=== PATIENT | male | born 1980 ===

== ENCOUNTER 2017-03-05 20:01 | Emergency (ER) | payer OTHER ==
[2017-03-05 20:25] VITALS: RESP 18; O2SAT 98
[2017-03-05] MEDS ORDERED: Naproxen 550 mg Tab PO STA (21:18)
[2017-03-05] MEDS ORDERED: Oxycodone/Acetaminophen 5/325 mg Tab PO STA (21:18)
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
[2017-03-05] MEDS ORDERED: Oxycodone/Acetaminophen 5/325 mg Tab ONE (21:23)
[2017-03-05] MEDS ORDERED: Naproxen 550 mg Tab PO ONE (21:23)
[2017-03-05 21:33] VITALS: BP 134/90; PULSE 106; TEMP 97.9
== END 2017-03-05 21:32 | disposition home or self-care (01) ==
LOC: C.ER 20:01
DX: S93.401D Sprain of unspecified ligament of right ankle, subsequent encounter (principal); X58.XXXD Exposure to other specified factors, subsequent encounter